=== PATIENT | male | born 1985 | race Caucasian/White ===

== ENCOUNTER 2019-06-06 13:14 | Inpatient (IN) | payer OTHER ==
[~2019-06-06] VITALS: Ht 182.9 cm; Wt 64.0 kg
[2019-06-06] MEDS ORDERED: SODIUM CHLORIDE 0.9% 1,000 ML IV ONE ×2 (14:28)
[2019-06-06] MEDS ORDERED: IBUPROFEN 800 MG TAB PO ONE (14:30)
[2019-06-06 14:56] LABS: Basophils # (auto) 0 uL; Basophils % (auto) 0.1 % (0.0-2.0); Eosinophils # (auto) 0 uL; Eosinophils % (auto) 0.1 % (0.0-7.0); Hematocrit 42.3 % (41.0-53.0); Hemoglobin 14.3 g/dL (13.5-17.5); Lymphocytes # (auto) 0.7 uL; Lymphocytes % (auto) 5.3 % (10.0-50.0); Mean Corpuscular Hemoglobin 29.7 pg (28.0-32.0); Mean Corpuscular Hgb Conc. 33.8 g/dL (32.0-36.0); Mean Corpuscular Volume 87.8 fL (80.0-100.0); Monocytes # (auto) 0.9 uL; Monocytes % (auto) 6.3 % (0.0-12.0); Neutrophils # (auto) 12.1 uL; Neutrophils % (auto) 88.2 % (37.0-80.0); Platelet Count (auto) 222 10^3/uL (140-450); Red Blood Cells 4.82 10^6/uL (4.5-5.90); Red Cell Distribution Width 13.3 % (11.8-14.3); White Blood Cell 13.8 10^3/uL (4.4-10.8)
[2019-06-06 15:23] LABS: Albumin 4.3 g/dL (3.4-5.0); Calcium 8.8 mg/dL (8.5-10.1); Potassium 3.7 mmol/L (3.5-5.1)
[2019-06-06 15:28] LABS: BUN/Creatinine Ratio 14.1; Bilirubin, Total 0.4 mg/dL (0.2-1.0); Total Protein 7.7 g/dL (6.4-8.2)
[2019-06-06] MEDS ORDERED: LORazepam 2MG/ML-1ML VIAL IV ONE (16:30)
[2019-06-06] MEDS ORDERED: PROMETHAZINE HCL 25 MG/ML 1ML IV PRN (17:45)
[2019-06-06] MEDS ORDERED: NITROGLYCERIN 0.4 MG SL TAB SL PRN (17:45)
[2019-06-06] MEDS ORDERED: LACTULOSE 20Gm/30ML SOLN PO PRN (17:45)
[2019-06-06] MEDS ORDERED: TEMAZEPAM 15 MG CAP PO PRN (17:45)
[2019-06-06] MEDS ORDERED: LORazepam 2MG/ML-1ML VIAL IV PRN ×2 (17:45→21:15)
[2019-06-06] MEDS ORDERED: MORPHINE SULF INJ 2 MG/ML SYRINGE 1ML IV PRN (17:45)
[2019-06-06] MEDS ORDERED: traMADol HCL 50 MG TAB PO PRN (17:45)
[2019-06-06] MEDS ORDERED: LEVETIRACETAM 500 MG TAB PO ONE (18:15)
[2019-06-06] MEDS: SODIUM CHLORIDE 0.9% 1,000 ML IV SCH (19:20)
[2019-06-06 20:01] VITALS: BP 102/55
--- NOTE | 2019-06-06 21:00 | NUR ---
(NEURO) AT BEDSIDE DISCUSSING PLAN OF CARE WITH PATIENT.
[2019-06-06] MEDS: LEVETIRACETAM 500 MG TAB PO SCH (21:05)
[2019-06-06] MEDS: ACETAMINOPHEN 500 MG TAB PO PRN (21:09)
--- NOTE | 2019-06-06 21:23 | NUR ---
Seizure Precautions Patient assessed and determined to be at risk or positive for seizure activity. Bed rails padded, classroom monitor remains on patient. Suction set up at bedside and oxygen readily available. Bed alarm placed on and patient advised to call for all toileting needs, patient verbalized understanding.
--- NOTE | 2019-06-06 21:23 | NUR ---
[facility] SENT FOR TOX SCREEN/URINALYSIS
[2019-06-06 21:35] LABS: Urine Bacteria FEW /hpf (None Seen); Urine Blood TRACE /uL (Negative); Urine Specific Gravity 1.019 (1.001-1.035); Urine Sperm PRESENT /hpf (None Seen); Urine WBC 2 /hpf (0 - 3)
[2019-06-06 21:49] LABS: Alcohol, Urine < 3.0 mg/dL (0-5); Barbiturate Scree,Urine NEGATIVE (NEGATIVE); Benzodiazephine Screen, Urine NEGATIVE (NEGATIVE); Cannabinoid Screen, Urine NEGATIVE (NEGATIVE); Cocaine Screen, Urine NEGATIVE (NEGATIVE); Opiate Scree,Urine NEGATIVE (NEGATIVE); Phencyclidine Screen, Urine NEGATIVE (NEGATIVE)
[2019-06-06 21:51] LABS: Amphetamine Screen, Urine NEGATIVE (NEGATIVE)
[2019-06-06 22:00] VITALS: BP 102/55
[2019-06-06] MEDS: BUPRENORPHINE NALOXONE SL SCH (22:00)
[2019-06-07 05:00] VITALS: BP 107/55
--- NOTE | 2019-06-07 06:54 | NUR ---
NO SEIZURE ACTIVITY NOTED OVERNIGHT. PATIENT RESTING IN NO APPARENT DISTRESS.
[2019-06-07 07:10] LABS: Basophils # (auto) 0 uL; Basophils % (auto) 0.3 % (0.0-2.0); Eosinophils # (auto) 0 uL; Eosinophils % (auto) 0.1 % (0.0-7.0); Hematocrit 39.6 % (41.0-53.0); Hemoglobin 13.6 g/dL (13.5-17.5); Lymphocytes # (auto) 1.2 uL; Lymphocytes % (auto) 13.1 % (10.0-50.0); Mean Corpuscular Hemoglobin 30.1 pg (28.0-32.0); Mean Corpuscular Hgb Conc. 34.3 g/dL (32.0-36.0); Mean Corpuscular Volume 87.7 fL (80.0-100.0); Monocytes # (auto) 0.8 uL; Monocytes % (auto) 8.8 % (0.0-12.0); Neutrophils % (auto) 77.7 % (37.0-80.0); Platelet Count (auto) 208 10^3/uL (140-450); Red Blood Cells 4.52 10^6/uL (4.5-5.90); Red Cell Distribution Width 13.8 % (11.8-14.3)
[2019-06-07 07:28] LABS: Albumin 3.8 g/dL (3.4-5.0); Calcium 8.5 mg/dL (8.5-10.1); Potassium 3.8 mmol/L (3.5-5.1)
[2019-06-07 07:33] LABS: BUN/Creatinine Ratio 13.5; Bilirubin, Total 0.7 mg/dL (0.2-1.0)
--- NOTE | 2019-06-07 08:10 | NUR ---
Opening Note Assumed care of patient, he is A & O x 4, no s/s of distress at this time. POC discussed with patient. Patient has some soreness in his back from yesterday seizure activity but otherwise no pain. Bed is in lowest, locked position, call light within reach, bed rails up x2 and padded for seizure precaution. Patient bed alarm on to alert in the event of a seizure. Patient informed. Will continue to monitor Q1h and PRN.
[2019-06-07 09:00] VITALS: BP 110/64
[2019-06-07] MEDS: BUPRENORPHINE NALOXONE SL SCH (10:00)
[2019-06-07] MEDS: SODIUM CHLORIDE 0.9% 1,000 ML IV SCH (10:35)
[2019-06-07] MEDS: LEVETIRACETAM 500 MG TAB PO SCH (10:36)
--- NOTE | 2019-06-07 12:15 | NUR ---
Spoke to [facility] Supervisor [facility] Department Roselia . Report regarding patient condition given. No bed at this time. Will await orders for a bed.
--- NOTE | 2019-06-07 12:32 | NUR ---
1200 06/07/19 Contacted [facility]reck[facility] Supervisor Roselia at [facility] and requested that authorization be provided for patient's continued stay. Per Roselia they did receive the clinical information for today that I faxed earlier. I let Roselia know that there is an order for this patient to transfer to [facility]. I faxed transfer order, discharge summary and Notice Regarding Post Stabilization to [facility] [phone]. I also provided [employer]reck[employer] Supervisor Roselia with contact information for the nurse's station as well as Dr. Street.
[2019-06-07 13:00] VITALS: BP 120/59
--- NOTE | 2019-06-07 14:00 | NUR ---
Communicated with Dr. Street on telephone Orders for discharge received, read back and verified.
[2019-06-07 17:00] VITALS: BP 123/57
[2019-06-07 18:00] VITALS: BP 123/57
--- NOTE | 2019-06-07 18:26 | NUR ---
Report Called to [facility] RN Report called to Raheem RN, patient going to room 410. All questions answered.
[2019-06-07] MEDS: ACETAMINOPHEN 500 MG TAB PO PRN (18:40)
[2019-06-07] MEDS ORDERED: BUPR2MIS SL (18:47)
[2019-06-07] MEDS ORDERED: HYDR1CAP27 PO (18:47)
--- NOTE | 2019-06-07 21:10 | NUR ---
Transfer to [facility] Discharge instructions given as ordered by daysluciana RN. Encourage to follow up with PMD as instructed. All questions and concerns addressed. Patient and verbalized understanding. Medication reconciliation form completed and copy given to patient. IV to left arm left in place, patent and asymptomatic at this time. Telemetry unit returned to ICU via telemetry techs made aware. Patient taken to vehicle via gurney with all personal belongings, accompanied by [facility] staff and family member. No distress noted at time of departure.
== END 2019-06-07 21:10 | disposition short-term general hospital (02) | DRG 101 ==
LOC: ER 13:14 → TELE 13:15 → TELE-CENTR 19:50
PROVIDERS: ADMIT Internal Medicine; ATTEND Internal Medicine
DX: G40.409 Other generalized epilepsy and epileptic syndromes, not intractable, without status epilepticus (principal); F11.20 Opioid dependence, uncomplicated; F13.239 Sedative, hypnotic or anxiolytic dependence with withdrawal, unspecified; F41.9 Anxiety disorder, unspecified; I10 Essential (primary) hypertension; J40 Bronchitis, not specified as acute or chronic; Z79.899 Other long term (current) drug therapy; Z82.49 Family history of ischemic heart disease and other diseases of the circulatory system
CPT/HCPCS: 36415; 70450; 70486; 71045; 72125; 80053; 80307; 81001; 85025; 85652; 96361; 96374; G0378